=== PATIENT | male | born 1990 | race Caucasian/White ===

== ENCOUNTER → 2016-08-06 | Outpatient (CLI) | payer BC ==
[~2016-08-06] MED LIST: ASTN NAE; CYCL10TA6 PO; DICY20TA35 PO; FLM4 PO; LANS30CA12 PO; MULT-506 PO; MULT1CHW28 PO; NUTRTAB53 PO; NXM/40 PO; RMCI IV
--- NOTE | 2016-08-06 13:07 | DIAGNOSTIC IMAGING REPORT ---
EXAMINATION: RENAL ULTRASOUND CLINICAL HISTORY: PROTEINURIA COMPARISON STUDY: CT scan dated 06/27/2015 FINDINGS: The right kidney measures 12.4 CM. The left kidney measures 11.2 CM. There is no evidence of hydronephrosis. There are no renal masses. There there is small echogenic foci within each kidney.. No bladder abnormalities are visualized. Bilateral ureteral jets were visualized. IMPRESSION : Equivocal nephrolithiasis. No renal masses identified. No evidence of hydronephrosis Electronically signed by: Gerald Sierra M.D. 08/06/2016 1:05 PM Dictated Date/Time: 08/06/2016 1:04 PM
== END | disposition home or self-care (01) ==
LOC: C.ULTR 12:27
PROVIDERS: ATTEND Family Medicine
DX: R80.9 Proteinuria, unspecified (principal); N20.0 Calculus of kidney

== ENCOUNTER 2016-08-20 19:50 | Emergency (ER) | payer OTHER, BC ==
[~2016-08-20] VITALS: Ht 172.7 cm; Wt 56.6 kg
[~2016-08-20 19:50] MED LIST changes: -ASTN NAE; -CYCL10TA6 PO; -FLM4 PO; -MULT1CHW28 PO; -NXM/40 PO
[2016-08-20 19:56] VITALS: TEMP 36.8; Ht 172.7 cm; Wt 56.6 kg
[2016-08-20] MEDS ORDERED: FLM4 PO (20:08)
[2016-08-20] MEDS ORDERED: ASTN NAE (20:08)
[2016-08-20] MEDS ORDERED: NXM/40 PO (20:08)
[2016-08-20] MEDS ORDERED: MULT1CHW28 PO (20:09)
[2016-08-20] MEDS ORDERED: ACETAMINOPHEN 500 MG TAB PO STA (20:22)
[2016-08-20] MEDS ORDERED: CYCLOBENZAPRINE HCL 10 MG TAB PO STA (20:22)
--- NOTE | 2016-08-20 21:01 | DIAGNOSTIC IMAGING REPORT ---
L-SPINE MIN 4 VIEWS ROUTINE CLINICAL HISTORY: Low back pain COMPARISON STUDY: No previous studies for comparison. FINDINGS: There are surgical clips projected over the right iliac bone. There are surgical clips within the right upper quadrant consistent with a prior cholecystectomy. There are 5 lumbar type vertebral bodies. No fractures or subluxations are visualized. No destructive lesions are evident. IMPRESSION: No fractures, subluxations, or destructive lesions are visualized on conventional radiographic imaging Electronically signed by: Gerald Sierra M.D. 08/20/2016 9:00 PM Dictated Date/Time: 08/20/2016 8:59 PM
[2016-08-20] MEDS ORDERED: CYCL10TA6 PO (21:11)
[2016-08-20] MEDS ORDERED: FLEXERIL HOME PACK 10 MG VIAL PO ONE (21:15)
--- NOTE | 2016-08-20 21:17 | EMERGENCY ROOM VISIT NOTE ---
History First contact with patient: 20:09 Chief Complaint: BACK PAIN Stated Complaint: BACK PAIN, WORK COMP History of Present Illness The patient is a 25 year old male who presents to the Emergency Room with complaints of lower back pain with pain occasionally radiating down both lower extremities, right worse than left. 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 He reports that the buses have very poor seating without any support. He reports that he noticed discomfort in his back last week. 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 The patient reports that there is one certain turn and his driving circuit that when he makes the turn, he gets a very sharp pain in the back. The patient denies any lower extremity weakness, saddle anesthesias or bladder/bowel incontinence/other difficulty. Movement of his back significantly worsens his pain. The patient denies any history of chronic back pain. He currently rates his discomfort an 8 out of 10, reporting that it feels like his back is really tight. Review of Systems 10 system review was performed and was negative except for pertinent positives and negatives as indicated in history of present illness Past Medical/Surgical History Medical Problems: (1) Asthma (2) Crohn's disease (3) History of Clostridium difficile infection Surgical Problems: (1) Exploratory laparotomy (2) Status post appendectomy (3) Status post cholecystectomy (4) Status post exploratory laparotomy (5) Status post lymph node biopsy (6) Status post tonsillectomy Family History Diabetes mellitus FH: cancer FH: lung disease Hypertension Social History Smoking Status: Current Every Day Smoker Alcohol Use: none Marital Status: single Occupation Status: employed Current/Historical Medications Scheduled Cyclobenzaprine Hcl (Flexeril), 10 MG PO TID Dicyclomine Hcl (Bentyl), 20 MG PO DAILY Esomeprazole Magnesium (Nexium), 40 MG PO DAILY Infliximab (Remicade), 100 MG IV UD Multiple Vitamins W/ Minerals (Airborne), 1 TAB PO DAILY Multivitamin (Multivitamin), 1 TAB PO DAILY Tamsulosin HCl (Tamsulosin HCl), 0.4 MG PO DAILY Scheduled PRN Azelastine Hcl (Astelin Nasal [place]), 1-2 SPRAYS MARY BID PRN for Nasal Congestion Allergies Coded Allergies: Azithromycin (Verified Allergy, Severe, HIVES, 03/14/16) Diphenhydramine (Verified Adverse Reaction, Severe, "SEVERE ANXIETY", ) Physical Exam Vital Signs Date Time Temp Pulse Resp B/P Pulse Ox O2 Delivery O2 Flow Rate FiO2 08/20/16 19:56 36.8 91 20 136/88 97 Room Air Physical Exam CONSTITUTIONAL: Healthy and well nourished. Alert and oriented X 3 with positive affect. Patient appears in mild to moderate discomfort from pain. HEENT: Normocephalic, atraumatic. Pupils equal, round and reactive. NECK: Full active range of motion without discomfort. RESPIRATORY: Clear to auscultation bilaterally with no wheezing, crackles, rhonchi or stridor. CARDIOVASCULAR: Regular rate and rhythm with no murmurs, rubs or gallops. GASTROINTESTINAL: Bowel sounds present in all quadrants. Soft and nontender to palpation. MUSCULOSKELETAL: The patient has generalized lumbar paraspinous muscle tenderness to palpation that extends into the SI joints. Negative logroll. Negative sitting straight leg raise. Ankle plantar/dorsiflexion strength is 5 out of 5 and symmetric bilaterally. She has no focal tenderness to palpation or step-offs through the central lumbar spine. No obvious muscle spasm on exam. INTEGUMENTARY: No rash or other significant dermatologic conditions noted. NEUROLOGIC: No focal neurologic deficits noted. Lower extremity deep tendon reflexes are 2+ and symmetric bilaterally. Medical Decision & Procedures ER Provider Diagnostic Interpretation: My interpretation of lumbar spine x-rays does not show any acute fractures, subluxation or lordotic straightening. Radiologist report is as follows: L-SPINE MIN 4 VIEWS ROUTINE CLINICAL HISTORY: Low back pain COMPARISON STUDY: No previous studies for comparison. FINDINGS: There are surgical clips projected over the right iliac bone. There are surgical clips within the right upper quadrant consistent with a prior cholecystectomy. There are 5 lumbar type vertebral bodies. No fractures or subluxations are visualized. No destructive lesions are evident. IMPRESSION: No fractures, subluxations, or destructive lesions are visualized on conventional radiographic imaging Medications Administered Medications (Trade) Dose Ordered Sig/Florencio Route Start Time Stop Time Status Last Admin Dose Admin Cyclobenzaprine HCl (Flexeril Tab) 10 mg NOW STAT PO 08/20/16 20:22 08/20/16 20:24 DC 08/20/16 20:33 10 MG Acetaminophen (Tylenol Tab) 1,000 mg NOW STAT PO 08/20/16 20:22 08/20/16 20:24 DC 08/20/16 20:33 1,000 MG ED Course Patient history and physical exam were performed. Nurse's notes were reviewed. Vital signs were reviewed and were normal. The patient was administered Flexeril 10 mg and Tylenol 1000 mg orally. X-rays of the lumbar spine were normal. The patient was encouraged to intermittently apply heat to the back. Tylenol for baseline pain relief. The patient received a prescription for Flexeril for additional relief. No drinking or driving while taking Flexeril. The patient was provided a work note for no lifting greater than 10 pounds or sitting for long periods of time, which will likely preclude him from driving. He was instructed to follow-up with his Worker's Compensation physician for further reevaluation and management. The patient voiced understanding of all discharge instructions, was happy with plan of care, and rated his pain a 4 out of 10 at the time of discharge. Impression Primary Impression: Lumbar strain Additional Impression: Work related injury Departure Information Prescriptions Cyclobenzaprine Hcl (FLEXERIL) 10 Mg Tab 10 MG PO TID for spasm, #15 TAB Prov: Irineo Motta PA 08/20/16 Referrals Vera Bob D.O. (PCP) Patient Instructions [facility] Problem Qualifiers Primary Impression: Lumbar strain Encounter type: initial encounter Qualified Codes: S39.012A - Strain of muscle, fascia and tendon of lower back, initial encounter
[2016-08-20 21:35] VITALS: BP 125/68; PULSE 84; O2SAT 98
== END 2016-08-20 21:37 | disposition home or self-care (01) ==
LOC: C.EDB 19:51 → C.EDD 21:37
DX: S39.012A Strain of muscle, fascia and tendon of lower back, initial encounter (principal); X58.XXXA Exposure to other specified factors, initial encounter; J45.909 Unspecified asthma, uncomplicated; K50.90 Crohn's disease, unspecified, without complications; F17.200 Nicotine dependence, unspecified, uncomplicated; Z86.19 Personal history of other infectious and parasitic diseases; Z83.3 Family history of diabetes mellitus; Z82.49 Family history of ischemic heart disease and other diseases of the circulatory system

== ENCOUNTER → 2016-11-07 | Outpatient (CLI) | payer BC ==
[~2016-11-07] MED LIST changes: +ASTN NAE; +CLIN150C PO; +FLM4 PO; -LANS30CA12 PO; +MULT1CHW28 PO; -NUTRTAB53 PO; +NXM/40 PO
[2016-11-07 14:33] LABS: BASO % 0.6 %; BASO ABS # 0.04 K/uL (0-0.2); COMPLETE YES; EOS % 6.2 %; HEMATOCRIT 44.5 % (42-52); IG% 0.2 %; LYMPH % 42.2 %; MEAN CELL VOLUME 89.2 fL (80-100); MEAN CORPUSCULAR HEMOGLOBIN 31.9 pg (25-34); MEAN CORPUSCULAR HGB CONC 35.7 g/dl (32-36); MEAN PLATELET VOLUME 8.4 fL (7.4-10.4); MONO % 8.1 %; NEUT % 42.7 %; PLATELET COUNT 270 K/uL (130-400); RED BLOOD COUNT 4.99 M/uL (4.7-6.1); WHITE BLOOD COUNT 6.16 K/uL (4.8-10.8)
[2016-11-07 15:02] LABS: ALT/SGPT 28 U/L (12-78); BLOOD UREA NITROGEN 10 mg/dl (7-18); BUN/CREATININE RATIO 12.1 (10-20); CARBON DIOXIDE 28 mmol/L (21-32); CHLORIDE 108 mmol/L (98-107); CREATININE 0.81 mg/dl (0.60-1.40); GLUCOSE 72 mg/dl (70-99); POTASSIUM 3.9 mmol/L (3.5-5.1); SODIUM 143 mmol/L (136-145)
[2016-11-07 15:04] LABS: ALB/GLOB RATIO 1.4 (0.9-2); ALKALINE PHOSPHATASE 58 U/L (45-117); AST/SGOT 17 U/L (15-37); CALCIUM 9.2 mg/dl (8.5-10.1)
== END | disposition home or self-care (01) ==
LOC: C.LAB 13:16
PROVIDERS: ATTEND Family Medicine
DX: Z20.2 Contact with and (suspected) exposure to infections with a predominantly sexual mode of transmission (principal)

== ENCOUNTER 2017-01-12 20:14 | Emergency (ER) | payer BC ==
[~2017-01-12] VITALS: Ht 172.7 cm; Wt 55.8 kg
[~2017-01-12 20:14] MED LIST changes: -CLIN150C PO
[2017-01-12 20:26] VITALS: BP 125/85; PULSE 80; TEMP 36.6; O2SAT 98; Ht 172.7 cm; Wt 55.8 kg
== END 2017-01-12 20:56 | disposition left against medical advice (07) ==
LOC: C.EDB 20:15
DX: Z53.21 Procedure and treatment not carried out due to patient leaving prior to being seen by health care provider (principal)

== ENCOUNTER 2017-09-24 22:48 | Emergency (ER) | payer BC ==
[~2017-09-24] VITALS: Ht 170.2 cm; Wt 54.8 kg
[2017-09-24 22:52] VITALS: TEMP 36.6; Ht 170.2 cm; Wt 54.8 kg
[2017-09-24] MEDS ORDERED: CLR10 PO (23:02)
[2017-09-24 23:46] LABS: BASO % 0.4 %; BASO ABS # 0.03 K/uL (0-0.2); EOS ABS # 0.35 K/uL (0-0.5); HEMATOCRIT 41.9 % (42-52); HEMOGLOBIN 14.6 g/dL (14.0-18.0); IG# 0.01 K/uL (0.00-0.02); LYMPH % 38.8 %; LYMPH ABS # 2.72 K/uL (1.2-3.4); MEAN CELL VOLUME 88.8 fL (80-100); MEAN CORPUSCULAR HEMOGLOBIN 30.9 pg (25-34); MEAN CORPUSCULAR HGB CONC 34.8 g/dl (32-36); MEAN PLATELET VOLUME 8.1 fL (7.4-10.4); MONO % 8.7 %; MONO ABS # 0.61 K/uL (0.11-0.59); NEUT ABS # 3.29 K/uL (1.4-6.5); PLATELET COUNT 250 K/uL (130-400); RED CELL DISTRIBUTION WIDTH CV 12.1 % (11.5-14.5); RED CELL DISTRIBUTION WIDTH SD 38.8 fL (36.4-46.3); WHITE BLOOD COUNT 7.01 K/uL (4.8-10.8)
[2017-09-25 00:03] LABS: ALBUMIN 3.9 gm/dl (3.4-5.0); CALCIUM 9.2 mg/dl (8.5-10.1); CREATININE 0.84 mg/dl (0.60-1.40); POTASSIUM 4.1 mmol/L (3.5-5.1)
[2017-09-25 00:06] LABS: TOTAL PROTEIN 8.2 gm/dl (6.4-8.2)
[2017-09-25 00:20] LABS: MONOSPOT NEG (NEG)
[2017-09-25] MEDS ORDERED: OPTIRAY 320 IV PRN (00:30)
[2017-09-25] MEDS ORDERED: ONDANSETRON INJ 2 MG/ML 2 ML VIAL IV STA (00:54)
[2017-09-25] MEDS ORDERED: KETOROLAC TROMETHAMINE 30 MG/ML VIAL IV STA (00:54)
--- NOTE | 2017-09-25 01:51 | EMERGENCY ROOM VISIT NOTE ---
History First contact with patient: 23:04 Chief Complaint: SORETHROAT Stated Complaint: ORAL PAIN, THROAT PAIN, STOMACH PAIN History of Present Illness The patient is a 26 year old male who presents to the Emergency Room via private vehicle with complaints of "oral pain, throat pain, stomach pain". The patient states that he has been expressing a sore throat since Thursday, as well as abdominal pain. It was of sudden onset and left upper quadrant region. Is followed by one episode of vomiting. Since then the abdominal pain has persisted but is not as severe as it was on Thursday. He notes a history of ileus. He also notes a history of recent colorectal surgery and still has some intermittent rectal bleeding. He follows with his surgeon for this. He notes this is not prompting his visit, rather the sores in his mouth and his abdominal pain or his concerns. He also points to 2 small erythematous regions on his scrotum which she would also like addressed as well as his right elbow pain/numbness going into his fourth and fifth digits of the right hand. Review of Systems A complete 6-point Review of Systems was discussed with the patient, with pertinent positives and negatives listed in the History of Present Illness. All remaining Review of Systems questions can be considered negative unless otherwise specified. Past Medical/Surgical History Medical Problems: (1) Asthma (2) Crohn's disease (3) History of Clostridium difficile infection Surgical Problems: (1) Exploratory laparotomy (2) Status post appendectomy (3) Status post cholecystectomy (4) Status post exploratory laparotomy (5) Status post lymph node biopsy (6) Status post tonsillectomy Family History Diabetes mellitus FH: cancer FH: lung disease Hypertension Social History Smoking Status: Never Smoker Alcohol Use: none Marital Status: single Occupation Status: employed Current/Historical Medications Scheduled Esomeprazole Magnesium (Nexium), 40 MG PO DAILY Scheduled PRN Loratadine (Claritin), 10 MG PO DAILY PRN for Seasonal Allergies Physical Exam Vital Signs Date Time Temp Pulse Resp B/P (MAP) Pulse Ox O2 Delivery O2 Flow Rate FiO2 09/25/17 01:05 71 18 130/87 98 Room Air 09/24/17 22:52 36.6 90 18 135/94 97 Room Air Physical Exam VITAL SIGNS - Vital signs and nursing notes were reviewed. Stable. Afebrile. GENERAL -26-year-old male appearing his stated age who is in no acute distress. Communicates well with provider and answers questions appropriately. SKIN - Without rashes. No meningeal or petechial rash. HEAD - NC/AT. EYES - PERRL with EOMI bilaterally. Sclera anicteric. EARS - No deformities of external structures noted on gross examination bilaterally. NOSE - Midline and without cyanosis. No epistaxis or purulent drainage noted. Piercing noted. MOUTH/OROPHARYNX - Without perioral cyanosis. Buccal mucosa pink and moist and without leukoplakia. Tongue midline with equal elevation of palate bilaterally. No tonsillar hypertrophy, erythema, or exudates noted. A few small subcentimeter fair dentition noted. NECK - Neck with FROM. Supple to palpation. No lymphadenopathy noted. No nuchal rigidity. LUNGS - Chest wall symmetric without accessory muscle use, intercostals retractions, or central cyanosis. Normal vesicular breath sounds CTA B/L. No wheezes, rales, or rhonchi appreciated. CARDIAC - RRR with S1/S2. No murmur, rubs, or gallops appreciated. ABDOMEN - Abdominal contour normal without pulsations or visible masses. BS normoactive all four quadrants. Left sided/left upper quadrant abdominal tenderness. No palpable masses, hepatosplenomegaly, or ascites noted. NEUROLOGIC - Cranial nerves II through XII grossly intact. Sensory intact to light touch throughout. PSYCH - A&Ox3 and cooperates fully with examiner. Pt is very pleasant and interacts well with examiner. GENITAL: There are 2 small slightly raised subcentimeter circular lesions on the patient's scrotum. Penis unremarkable. No ulcerations. No drainage. RECTAL: Patient declined. Medical Decision & Procedures ER Provider Diagnostic Interpretation: Chest abdominal series x-ray: Nonobstructive bowel gas pattern. Chest unremarkable. There is a large amount of gas in the gastric region. CT ABDOMEN & PELVIS With Contrast: There are mildly prominent fluid-filled loops of small bowel. Gas and stool is noted throughout the colon. Consider dysmotility or ileus. Obstructive process felt to be unlikely. Prior cholecystectomy. Surgical clips in the right lower quadrant likely related to prior appendectomy. Please correlate with surgical history. Radiologist: Steven Fisher DO Laboratory Results 09/24/17 23:30 Red Blood Count 4.72, Mean Corpuscular Volume 88.8, Mean Corpuscular Hemoglobin 30.9, Mean Corpuscular Hemoglobin Concent 34.8, Mean Platelet Volume 8.1, Neutrophils (%) (Auto) 47.0, Lymphocytes (%) (Auto) 38.8, Monocytes (%) (Auto) 8.7, Eosinophils (%) (Auto) 5.0, Basophils (%) (Auto) 0.4, Neutrophils # (Auto) 3.29, Lymphocytes # (Auto) 2.72, Monocytes # (Auto) 0.61, Eosinophils # (Auto) 0.35, Basophils # (Auto) 0.03 09/24/17 23:30 Test 09/24/17 23:30 White Blood Count 7.01 K/uL (4.8-10.8) Red Blood Count 4.72 M/uL (4.7-6.1) Hemoglobin 14.6 g/dL (14.0-18.0) Hematocrit 41.9 % (42-52) Mean Corpuscular Volume 88.8 fL (80-100) Mean Corpuscular Hemoglobin 30.9 pg (25-34) Mean Corpuscular Hemoglobin Concent 34.8 g/dl (32-36) Platelet Count 250 K/uL (130-400) Mean Platelet Volume 8.1 fL (7.4-10.4) Neutrophils (%) (Auto) 47.0 % Lymphocytes (%) (Auto) 38.8 % Monocytes (%) (Auto) 8.7 % Eosinophils (%) (Auto) 5.0 % Basophils (%) (Auto) 0.4 % Neutrophils # (Auto) 3.29 K/uL (1.4-6.5) Lymphocytes # (Auto) 2.72 K/uL (1.2-3.4) Monocytes # (Auto) 0.61 K/uL (0.11-0.59) Eosinophils # (Auto) 0.35 K/uL (0-0.5) Basophils # (Auto) 0.03 K/uL (0-0.2) RDW Standard Deviation 38.8 fL (36.4-46.3) RDW Coefficient of Variation 12.1 % (11.5-14.5) Immature Granulocyte % (Auto) 0.1 % Immature Granulocyte # (Auto) 0.01 K/uL (0.00-0.02) Anion Gap 4.0 mmol/L (3-11) Est Creatinine Clear Calc Drug Dose 103.3 ml/min Estimated GFR () 140.1 Estimated GFR (Non- 120.8 BUN/Creatinine Ratio 9.0 (10-20) Calcium Level 9.2 mg/dl (8.5-10.1) Total Bilirubin 0.3 mg/dl (0.2-1) Aspartate Amino Transf (AST/SGOT) 17 U/L (15-37) Alanine Aminotransferase (ALT/SGPT) 31 U/L (12-78) Alkaline Phosphatase 92 U/L (45-117) Total Protein 8.2 gm/dl (6.4-8.2) Albumin 3.9 gm/dl (3.4-5.0) Globulin 4.3 gm/dl (2.5-4.0) Albumin/Globulin Ratio 0.9 (0.9-2) Lipase 165 U/L (73-393) Monoscreen NEG (NEG) Medications Administered Medications (Trade) Dose Ordered Sig/Florencio Route Start Time Stop Time Status Last Admin Dose Admin Ondansetron HCl (Zofran Inj) 4 mg NOW STAT IV 09/25/17 00:54 09/25/17 00:56 DC 09/25/17 01:03 4 MG Ketorolac Tromethamine (Toradol Inj) 30 mg NOW STAT IV 09/25/17 00:54 09/25/17 00:56 DC 09/25/17 01:03 30 MG Medical Decision Patient was seen and evaluated as above in room C1. Review was performed of nursing notes and vital signs. After obtaining a thorough history and physical examination the above work up was performed. X-ray was obtained. There is a large amount of gas within the gastric lumen region otherwise nonobstructive bowel gas pattern. Because of this finding, the patient's level of abdominal pain a CT scan was obtained. This reveals ileus. He has had a bowel movement earlier today, while here and is not vomiting. I do not suspect obstruction. On blood work there is no leukocytosis or concerning anemia. Metabolic panel reveals no evidence of kidney or liver failure. Me[place] screen negative. RPR pending. Rapid strep negative. No ulcerations on the penis suggestive of syphilis. The right elbow reveals likely ulnar neuritis from his occupation. He is to call his GI doctor, and family doctor tomorrow to schedule follow-up. He is to return with worsening. The patient was educated upon management, had questions answered prior to discharge, and was discharged home in good condition. Case was discussed with the attending physician. In the evaluation and treatment of this patient the following differential diagnoses were entertained: Syphilis, sexually transmitted infection, ileus, bowel obstruction, among others. Impression Primary Impression: Sore throat Additional Impressions: Abdominal pain Ileus Departure Information Dispostion Home / Self-Care Condition GOOD Referrals Vera Bob D.O. (PCP) Patient Instructions ED Diet Faye Crow [facility] Additional Instructions You have been treated in the Emergency Department your Abdominal Pain. Laboratory results and imaging studies have ruled out any emergent causes for your abdominal pain which would warrant admission or surgery. For pain control, you can use the following tyhi-yaw-wjsyrcn medicines: - Regular strength (325mg/tab) Tylenol (acetaminophen) 2 tabs every 4-6 hours as needed. Do not exceed 12 tablets in a 24 hour period. Avoid taking more than 3 grams (3000 mg) of Tylenol per day. This includes any other sources of acetaminophen you may take on a regular basis. - Regular strength (200 mg/tab) Advil (ibuprofen) 1-2 tabs every 4-6 hours as needed. Do not exceed a dose of 3200 mg per day. Drink plenty of water and stay well hydrated. As with any trip to the Emergency Department, you should follow-up with your Primary Care Provider from today's visit. Return to the emergency department if your symptoms persist despite treatment plan outlined above or if the following symptoms occur: increased fevers, chills , worsening nausea/vomiting, blood in your stool or urine. Problem Qualifiers
[2017-09-25 02:20] VITALS: BP 120/72; PULSE 74; O2SAT 98
[2017-09-25 03:50] LABS: RAPID PLASMA REAGIN REACTIVE (NONREACT)
[2017-09-25 04:50] LABS: RAPID PLASMA REAGIN TITRE 64 DILS (NR)
--- NOTE | 2017-09-25 06:40 | DIAGNOSTIC IMAGING REPORT ---
ABDOMEN 2VIEW W/PA CHEST RTN HISTORY: 26 years-old Male L sided abd pain, hx ileus acute left-sided abdominal pain COMPARISON: Acute abdominal series radiographs 10/30/2015, CT 09/25/2017 TECHNIQUE: PA view of the chest with erect and supine views of the abdomen FINDINGS: Cardiomediastinal and hilar silhouettes are within normal limits. There is no pneumothorax, pleural effusion, focal airspace consolidation or overt pulmonary edema. The bones of the chest appear grossly intact. Cholecystectomy clips noted. Mild gastric distention with multiple nondilated gas-filled loops of small bowel seen throughout the abdomen and pelvis. No pneumoperitoneum or pneumatosis. The large bowel appears predominantly decompressed. Surgical clips noted within the abdominal right lower quadrant. No abnormal calcifications, fracture or organomegaly. IMPRESSION: 1. No acute processes of the chest. 2. Mild gastric distention with multiple nondilated gas-filled loops of small bowel throughout the abdomen and pelvis suggest ileus. No pneumoperitoneum or evidence of high-grade small bowel obstruction. The above report was generated using voice recognition software. It may contain grammatical, syntax or spelling errors. Electronically signed by: Azar Sheriff M.D. 09/25/2017 6:39 AM Dictated Date/Time: 09/25/2017 6:37 AM
--- NOTE | 2017-09-25 06:58 | DIAGNOSTIC IMAGING REPORT ---
ABDOMEN AND PELVIS CT WITH IV CONTRAST CT DOSE: 266.49 mGy.cm HISTORY: Acute left upper quadrant abdominal pain LUQ/left sided abd pain, hx ileus TECHNIQUE: Multiaxial CT images of the abdomen and pelvis were performed following the use of intravenous contrast. A dose lowering technique was utilized adhering to the principles of ALARA. COMPARISON STUDY: Acute abdominal series radiographs of same day, CT 06/27/2015. FINDINGS: Lung bases are clear. There is no pneumatosis or pneumoperitoneum identified. Imaged inferior cardiac chambers are unremarkable. Prior cholecystectomy. The liver, spleen, pancreas and adrenal glands are within normal limits. There is no intrahepatic biliary ductal dilation. Patent portal vein. Subcentimeter low attenuating lesions of the bilateral kidneys are too small to characterize however suggest renal cysts measuring up to 5 mm on the left. Previously noted punctate nonobstructing calculi of the inferior pole right kidney not clearly seen on this contrast-enhanced study. No obstructing renal calculi identified. Ureters and bladder are unremarkable. There is no ascites or mesenteric inflammatory changes. Aorta is patent, normal in course and caliber. No bulky adenopathy identified. There are multiple nondilated air and fluid-filled loops of small bowel throughout the abdomen and pelvis with air-fluid levels. No evidence of high-grade small bowel obstruction or transition point. Air is also seen within the large bowel. Postsurgical changes are seen within the abdominal right lower quadrant with surgically absent appendix. Soft tissues are within normal limits. Bones appear intact. IMPRESSION: 1. Multiple nondilated air and fluid-filled loops of small bowel throughout the abdomen and pelvis with air-fluid levels suggest ileus or enteritis. No definite evidence of small bowel obstruction or pneumoperitoneum. 2. Prior cholecystectomy and appendectomy. Electronically signed by: Azar Sheriff M.D. 09/25/2017 6:57 AM Dictated Date/Time: 09/25/2017 6:51 AM
== END 2017-09-25 02:22 | disposition home or self-care (01) ==
LOC: C.EDB 22:50 → C.EDC 09-25 02:22
DX: J02.9 Acute pharyngitis, unspecified (principal); K56.7 Ileus, unspecified; M25.521 Pain in right elbow; J45.909 Unspecified asthma, uncomplicated; K50.90 Crohn's disease, unspecified, without complications; Z90.49 Acquired absence of other specified parts of digestive tract; Z79.899 Other long term (current) drug therapy; Z83.3 Family history of diabetes mellitus; Z80.9 Family history of malignant neoplasm, unspecified; Z82.49 Family history of ischemic heart disease and other diseases of the circulatory system

== ENCOUNTER 2017-09-28 22:32 | Emergency (ER) | payer BC ==
[~2017-09-28] VITALS: Ht 170.2 cm; Wt 56.0 kg
[~2017-09-28 22:32] MED LIST changes: -ASTN NAE; +CLR10 PO; -DICY20TA35 PO; -FLM4 PO; -MULT-506 PO; -MULT1CHW28 PO; -RMCI IV
[2017-09-28 22:37] VITALS: TEMP 36.7; Ht 170.2 cm; Wt 56.0 kg
[2017-09-28] MEDS: PENICIL G BENZ 600,000U/ML SYR 2ML IM SCH ×2 (23:08→23:09)
[2017-09-28 23:47] VITALS: BP 124/82; PULSE 92; O2SAT 97
--- NOTE | 2017-09-29 00:59 | EMERGENCY ROOM VISIT NOTE ---
ED Visit Note First contact with patient: 22:45 Chief Complaint: I need antibiotics. History of Present Illness: Mr. Ware is a 26-year-old white male who ambulates into the ED requesting antibiotics. Patient was seen in this ED 5 days ago for mouth sores and sore throat. Testing was performed and he received notification from the Department of Health today that he tested positive for syphilis. He was encouraged to come to the emergency department for treatment. Currently patient is that the pain he was experiencing from his lesions have subsequently resolved. He reports he is not currently having any symptoms and denies fevers, chills, skin eruptions, skin color changes, additional mouth lesions, abdominal pain, nausea, vomiting, decreased appetite, genital lesions. Review of Systems: As noted above in history of present illness. Past Medical History: Asthma, Crohn's disease, C. difficile, status post appendectomy, cholecystectomy, exploratory laparoscopy, lymph node biopsy and tonsillectomy. Current Medications: Nexium, Claritin. Allergies to Medications: Azithromycin, Benadryl. Social History: Patient is currently employed; he feels safe in his home environment; he admits to tobacco use. Physical Examination: Vital Signs: Date Time Temp Pulse Resp B/P (MAP) Pulse Ox O2 Delivery O2 Flow Rate FiO2 09/28/17 23:47 92 18 124/82 97 09/28/17 22:37 36.7 94 18 126/84 97 Room Air GENERAL: 26-year-old male in no acute distress, nontoxic-appearing, afebrile and hemodynamically stable. Patient does appear to be anxious. NEUROLOGICAL: Awake, alert and oriented to person, place and time. Answering questions appropriately and following commands. Normal gait. Good hand eye coordination. SKIN: Warm, dry and pink. Mouth: On the inside of both cheeks and the lower lip patient has 3 small; 3-5 mm, minimally erythematous ulcers Asians with a slight whitish covering. HEENT: Atraumatic and normocephalic. No cervical lymphadenopathy. ED Course: Patient is assessed as noted above. Patient's medication list was reviewed. Patient received 2 injections of 1.2 million units of Benzathine penicillin G IM. Patient was educated about today's findings and instructed on his treatment plan ; he verbalized understanding and agreement with this plan. Clinical Impression: Antibiotic treatment for syphilis. Disposition: Patient discharged to home in stable condition; prior to departure he was reassessed and remained pain and symptom-free. He had no adverse reactions to his injections of penicillin. Plan: Patient did report he had a follow-up appointment scheduled with his primary care provider this Thursday and he was encouraged to keep it. Patient was educated on signs of infection. Patient was encouraged return to the ED for any signs of infection or any new/ concerning symptoms.
== END 2017-09-28 23:49 | disposition home or self-care (01) ==
LOC: C.EDB 22:33 → C.EDC 23:49
DX: A53.9 Syphilis, unspecified (principal); K50.90 Crohn's disease, unspecified, without complications; J45.909 Unspecified asthma, uncomplicated; Z79.899 Other long term (current) drug therapy; Z88.1 Allergy status to other antibiotic agents; Z88.8 Allergy status to other drugs, medicaments and biological substances; Z72.0 Tobacco use